=== PATIENT | male | born 1960 | race African-American/Black ===

== ENCOUNTER 2016-09-21 14:58 | Emergency (ER) | payer MEDICAID, MEDICARE ==
[~2016-09-21] VITALS: Ht 180.3 cm; Wt 149.7 kg
[~2016-09-21 14:58] MED LIST: ATORVASTATIN CA20 MG ORAL; FREESTYLE LITE1 EACH MC; GLIMEPIRIDE4 MG ORAL; KEFLEX500 MG ORAL; LANTUS SOL100 UNIT/1 SUBQ; LISINOPRIL20 MG ORAL; METFORMIN HCL1000 M1 ORAL; [UNRECOGNIZED DRUG - OTHER] MC
[2016-09-21 16:28] VITALS: BP 113/63
[2016-09-21 16:35] LABS: EOSINOPHILS % (AUTO) 0.6 % (0.0-3.0); LYMPHOCYTES % (AUTO) 17.6 % (20.0-45.0); MEAN CORPUSCULAR HGB CONC 30.5 G/DL (32.0-36.0); MEAN CORPUSCULAR VOLUME 82 FL (80-99); MEAN PLATELET VOLUME 7.8 FL (6.5-10.1); MONOCYTES % (AUTO) 6.6 % (1.0-10.0); NEUTROPHILS % (AUTO) 74.2 % (45.0-75.0); PLATELET COUNT 231 K/UL (150-450); RED BLOOD COUNT 5.71 M/UL (4.70-6.10); RED CELL DISTRIBUTION WIDTH 14.4 % (11.6-14.8); WHITE BLOOD COUNT 6.1 K/UL (4.8-10.8)
--- NOTE | 2016-09-21 16:47 | Diagnostic Imaging Report ---
Indication: Cough Comparison: 59 A single view chest radiograph was obtained. Findings: No definite infiltrate or pulmonary vascular congestion identified. The heart is enlarged. The aorta is mildly enlarged consistent with atherosclerotic vascular disease. The bones are unremarkable. Impression: No acute disease
[2016-09-21 16:50] LABS: ALANINE AMINOTRANSFERASE 13 U/L (3-41); ALBUMIN/GLOBULIN RATIO 1.3 (1.0-2.7); ANION GAP 13 (5-15); ASPARTATE AMINO TRANSFERASE 11 U/L (5-40); CALCIUM 9.4 mg/dL (8.6-10.2); CARBON DIOXIDE 29 mEQ/L (20-30); CHLORIDE 96 mEQ/L (98-107); CREATININE 1.2 mg/dL (0.7-1.2); GLOMERULAR FILTRATION RATE > 60 mL/min (>60); HEMOLYSIS 5; POTASSIUM 4.4 mEQ/L (3.4-4.9); SODIUM 138 mEQ/L (135-145); TOTAL PROTEIN 6.8 g/dL (6.6-8.7); TROPONIN I < 0.30 ng/mL (<=0.30)
[2016-09-21] MEDS ORDERED: ALBUTEROL SULF8.5 GM INH (17:04)
[2016-09-21] MEDS ORDERED: PROMETHAZINE-D118 ML ORAL (17:04)
[2016-09-21 17:10] VITALS: BP 124/72
[2016-09-21 17:18] LABS: APPEARANCE,URINE CLEAR; KETONES,URINE NEGATIVE (NEGATIVE); LEUKOCYTE ESTERASE ,URINE 1+ (NEGATIVE); NITRITE,URINE NEGATIVE (NEGATIVE); PH,URINE 5 (4.5-8.0); PROTEIN,URINE 1+ (NEGATIVE); UROBILINOGEN,URINE 1 MG/DL (0.0-1.0)
--- NOTE | 2016-09-21 17:20 | Emergency Room Report ---
History of Present Illness General Chief Complaint: Dizziness Source: Patient Present Illness HPI 56-year-old male presents to ED for evaluation. Patient states since today he' s been feeling dizzy, congested. Denies cough. Denies fevers or chills. Denies chest pain or shortness of breath. Notes history of diabetes. Patient wants to make sure he doesn't "have a walking pneumonia". Denies sick contacts or recent travel. Denies smoking or drug use. No other aggravating or relieving factors. Denies any other associated symptoms Allergies: Coded Allergies: NO KNOWN ALLERGIES (Unverified Allergy, Unknown, 09/03/15) Patient History Past Medical History: DM, HTN Past Surgical History: none Pertinent Family History: none Social History: Denies: alcohol use, drug use, smoking Reviewed Nursing Documentation: PMH: Agreed, PSxH: Agreed Nursing Documentation-PMH Hx Hypertension: Yes Hx Diabetes: Yes Review of Systems All Other Systems: negative except mentioned in HPI Physical Exam Vital Signs Date Time Temp Pulse Resp B/P Pulse Ox O2 Delivery O2 Flow Rate FiO2 09/21/16 15:13 98.2 93 20 122/90 94 Room Air Sp02 EP Interpretation: reviewed, normal General Appearance: no apparent distress, alert, GCS 15, non-toxic Head: normocephalic, atraumatic Eyes: bilateral eye PERRL, bilateral eye normal inspection ENT: hearing grossly normal, normal pharynx, no angioedema, normal voice Neck: full range of motion, supple/symm/no masses Respiratory: chest non-tender, lungs clear, normal breath sounds, speaking full sentences Cardiovascular #1: regular rate, rhythm, no edema Cardiovascular #2: 2+ carotid (R), 2+ carotid (L), 2+ radial (R), 2+ radial (L) , 2+ dorsalis pedis (R), 2+ dorsalis pedis (L) Gastrointestinal: normal bowel sounds, non tender, soft, non-distended, no guarding, no rebound Rectal: deferred Genitourinary: normal inspection, no CVA tenderness Musculoskeletal: back normal, gait/station normal, normal range of motion, non- tender Neurologic: alert, oriented x3, responsive, motor strength/tone normal, sensory intact, speech normal Psychiatric: judgement/insight normal, memory normal, mood/affect normal, no suicidal/homicidal ideation Reflexes: 3+ bicep (R), 3+ bicep (L), 3+ tricep (R), 3+ tricep (L), 3+ knee (R) , 3+ knee (L) Skin: normal color, no rash, warm/dry, well hydrated Lymphatic: no adenopathy Medical Decision Making Diagnostic Impression: Primary Impression: Bronchitis Additional Impression: Diabetes mellitus Qualified Codes: E13.9 - Other specified diabetes mellitus without complications ER Course Hospital Course 56-year-old male presents ED complaining of dizziness, congestion in chest Differential diagnoses include: URI, bronchitis, asthma/COPD, pneumonia Clinical course Patient placed on stretcher. After initial history, physical exam reveals an elderly male in no acute distress. Bilateral TM unremarkable. No pharyngeal erythema. No tonsillar exudates. No lymphadenopathy. lungs clear. I ordered labs, IV fluids, chest x-ray. Labs reviewed-no leukocytosis noted, hemoglobin/hematocrit stable, glucose > 300 no DKA Chest x-ray shows no acute process On reassessment patient states he feels better. Per curb-65 criteria, patient does not require admission. Findings consistent with bronchitis. Diagnosis - bronchitis, DM Stable and discharged home with prescriptions for albuterol, cough syrup. Instructed to followup with PMD. Return to ED if symptoms recur or worsen Labs Test 09/21/16 16:00 09/21/16 16:43 White Blood Count 6.1 K/UL (4.8-10.8) Red Blood Count 5.71 M/UL (4.70-6.10) Hemoglobin 14.3 G/DL (14.2-18.0) Hematocrit 46.8 % (42.0-52.0) Mean Corpuscular Volume 82 FL (80-99) Mean Corpuscular Hemoglobin 25.0 PG (27.0-31.0) Mean Corpuscular Hemoglobin Concent 30.5 G/DL (32.0-36.0) Red Cell Distribution Width 14.4 % (11.6-14.8) Platelet Count 231 K/UL (150-450) Mean Platelet Volume 7.8 FL (6.5-10.1) Neutrophils (%) (Auto) 74.2 % (45.0-75.0) Lymphocytes (%) (Auto) 17.6 % (20.0-45.0) Monocytes (%) (Auto) 6.6 % (1.0-10.0) Eosinophils (%) (Auto) 0.6 % (0.0-3.0) Basophils (%) (Auto) 1.0 % (0.0-2.0) Sodium Level 138 mEQ/L (135-145) Potassium Level 4.4 mEQ/L (3.4-4.9) Chloride Level 96 mEQ/L (98-107) Carbon Dioxide Level 29 mEQ/L (20-30) Anion Gap 13 (5-15) Blood Urea Nitrogen 10 mg/dL (7-23) Creatinine 1.2 mg/dL (0.7-1.2) Estimat Glomerular Filtration Rate > 60 mL/min (>60) Glucose Level 306 mg/dL (74-106) Calcium Level 9.4 mg/dL (8.6-10.2) Total Bilirubin 0.3 mg/dL (0.0-1.2) Aspartate Amino Transf (AST/SGOT) 11 U/L (5-40) Alanine Aminotransferase (ALT/SGPT) 13 U/L (3-41) Alkaline Phosphatase 98 U/L (40-129) Total Creatine Kinase 191 U/L (38-174) Troponin I < 0.30 ng/mL (<=0.30) Total Protein 6.8 g/dL (6.6-8.7) Albumin 3.9 g/dL (3.5-5.2) Globulin 2.9 g/dL Albumin/Globulin Ratio 1.3 (1.0-2.7) EKG Diagnostic Results Rate: normal Rhythm: NSR ST Segments: no acute changes Rhythm Strip Diag. Results EP Interpretation: yes Rhythm: NSR, no PVC's, no ectopy Chest X-Ray Diagnostic Results EP Interpretation: Yes Findings: no consolidation, no effusion, no pneumothorax, no acute cardiopulmonary disease Number of Views: 1 Last Vital Signs Date Time Temp Pulse Resp B/P Pulse Ox O2 Delivery O2 Flow Rate FiO2 09/21/16 17:10 98.4 90 27 124/72 95 Room Air Status: improved Disposition: HOME, SELF-CARE Condition: Stable Scripts D-Methorphan Hb/Prometh Hcl* (PROMETHAZINE-DM SYRUP*) 118 Ml Syrup 5 ML ORAL Q4H Y for For Cough for 7 Days, ML 0 Refills Prov: [place],LAURI M.D. 09/21/16 Albuterol Sulfate* (ALBUTEROL SULFATE MDI*) 8.5 Gm Hfa.aer.ad 2 PUFF INH Q4H Y for cough/wheezing, #1 EA 0 Refills Prov: LAURI BOLANOS M.D. 09/21/16 Patient Instructions: Acute Bronchitis, [id number] LAURI BOLANOS M.D. Sep 21, 2016 17:20
[2016-09-21 17:27] LABS: BACTERIA,URINE FEW /HPF; RBC,URINE 0-2 /HPF (0 - 0)
--- NOTE | 2016-10-24 03:28 | Cardiology Report ---
APPROVED REPORT EKG Measurement Heart [id number] Sinus tachycardia Otherwise normal ECG
== END 2016-09-21 17:13 | disposition home or self-care (01) ==
LOC: EMR 15:30
DX: J40 Bronchitis, not specified as acute or chronic (principal); E13.9 Other specified diabetes mellitus without complications; I10 Essential (primary) hypertension
CPT/HCPCS: 36415; 71010; 80053; 81003; 82550; 82553; 83880; 84484; 85025; 93005; 96374

== ENCOUNTER 2017-02-02 11:19 | Emergency (ER) | payer MEDICARE, OTHER ==
[~2017-02-02] VITALS: Ht 180.3 cm; Wt 156.0 kg
[~2017-02-02 11:19] MED LIST changes: +ALBUTEROL SULF8.5 GM INH; +PROMETHAZINE-D118 ML ORAL
[2017-02-02 11:31] VITALS: BP 131/85
[2017-02-02] MEDS ORDERED: Ketorolac 30mg Inj IV ONE (11:45)
--- NOTE | 2017-02-02 13:26 | Emergency Room Report ---
History of Present Illness General Chief Complaint: Multiple Trauma/Fall Source: Patient Present Illness HPI This is a 56-year-old male who presented after a reported mechanical fall. Patient stated that he had slipped on some water patient reported having done a split with his left leg forward and right knee backward. He reported having increased pain to his right knee as well as right hip as well as low back. Patient had prior history of diabetes. He also had history of obesity. Allergies: Coded Allergies: NO KNOWN ALLERGIES (Unverified Allergy, Unknown, 09/03/15) Patient History Past Medical History: see triage record, DM Reviewed Nursing Documentation: PMH: Agreed, PSxH: Agreed Nursing Documentation-PMH Past Medical History: No History, Except For Hx Hypertension: Yes Hx Diabetes: Yes Review of Systems All Other Systems: negative except mentioned in HPI Physical Exam Vital Signs Date Time Temp Pulse Resp B/P Pulse Ox O2 Delivery O2 Flow Rate FiO2 02/02/17 11:23 97.9 83 18 134/82 99 Room Air General Appearance: well appearing, no apparent distress, alert, GCS 15 Head: normocephalic, atraumatic ENT: hearing grossly normal, normal voice Neck: full range of motion, supple Respiratory: no respiratory distress, speaking full sentences Cardiovascular #1: normal inspection, regular rate, rhythm, no edema Musculoskeletal: back normal, no calf tenderness, decreased range of mation Neurologic: normal inspection, alert, oriented x3, responsive, 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 Differential diagnosis included was not limited to fracture, dislocation, sprain, back fracture. Because recent trauma x-ray imaging was ordered of the low back as well as the knee and right hip. X-ray imaging of the right knee interpreted by me 3 views show degenerative changes without evident fracture. X-ray imaging of the lumbar spine 4 views show straightening of the lumbar curvature without evident fracture and degenerative changes were present. Patient was given Toradol for pain. The patient is advised to follow up with primary care doctor in 1-2 days. Patient is advised to return if any worsening condition or if any changes in status that are concerning. Last Vital Signs Date Time Temp Pulse Resp B/P Pulse Ox O2 Delivery O2 Flow Rate FiO2 02/02/17 11:31 98.1 79 19 131/85 98 Room Air Status: improved Disposition: HOME, SELF-CARE Condition: Stable Referrals: NON PHYSICIAN (PCP) Eleazar Puente Feb 02, 2017 13:26
[2017-02-02] MEDS ORDERED: CYCLOBENZAPRINE10 MG ORAL (14:17)
[2017-02-02] MEDS ORDERED: IBUPROFEN400 MG ORAL (14:17)
--- NOTE | 2017-02-02 14:18 | Diagnostic Imaging Report ---
Indications: hip pain Findings: Two views of the right hip were obtained. No acute fracture is demonstrated. Alignment of the hip is within normal limits. Soft tissues are unremarkable. Impression: Negative examination of the hip.
--- NOTE | 2017-02-02 14:21 | Diagnostic Imaging Report ---
Indication: Pain 3 views of the right knee were obtained. Findings: No acute fracture, malalignment, or joint effusion are identified. There is a well-corticated ossicle just above the tibial tuberosity. Joint space is relatively well-maintained. Bone mineralization is within normal limits for age. Impression: Negative exam
[2017-02-02 14:25] VITALS: BP_SYST 128; BP_SYST 131; BP_DIAS 81; BP_DIAS 85
--- NOTE | 2017-02-02 14:47 | Diagnostic Imaging Report ---
Indication: Back pain Comparison: None Findings: 3 views of the lumbar spine were obtained. No acute fracture or malalignment is identified. Vertebral body heights and disk spaces are well maintained. Posterior elements are unremarkable. Aorta is moderately calcified. Impression: No acute findings. Atherosclerotic vascular disease
== END 2017-02-02 14:26 | disposition home or self-care (01) ==
LOC: EMR 11:44
DX: S80.01XA Contusion of right knee, initial encounter (principal); S76.011A Strain of muscle, fascia and tendon of right hip, initial encounter; S39.012A Strain of muscle, fascia and tendon of lower back, initial encounter; E11.9 Type 2 diabetes mellitus without complications; I10 Essential (primary) hypertension; E66.9 Obesity, unspecified; Z68.42 Body mass index [BMI] 45.0-49.9, adult; W01.0XXA Fall on same level from slipping, tripping and stumbling without subsequent striking against object, initial encounter; Y92.9 Unspecified place or not applicable
CPT/HCPCS: 72110; 73502; 73564; 96374; 99284; J1885